=== PATIENT | male | born 1960 | race Caucasian/White ===

== ENCOUNTER 2016-09-16 19:20 | Emergency (ER) | payer OTHER ==
--- NOTE | 2016-09-16 21:19 | ED Physician Chart ---
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 who swatted at the syringe sticking the pt's left thumb; Last tetanus shot: < 5 years; 2014; UTD; pt has mild left thumb pain; pt denies paresthesias, weakness , numbness, tingliness, neck pain, radiculopathy, neck pain, C/P, dyspnea, abdominal pain, A/N/V/D/C, fever, chills, Historian:: Patient Review:: Nurse's Note Reviewed Review of Systems - Review of Systems General/Constitutional: Fever, Chills, No weight loss, No weakness, No diaphoresis, No edema, No loss of appetite Skin: No skin lesions, Rash, No bruising Head: No headache, No light-headedness Eyes: No loss of vision, No pain, No diplopia ENT: No earache, No nasal drainage, No sore throat, No tinnitus Neck: No neck pain, No swelling, No thyromegaly, No stiffness, No mass noted Cardio Vascular: Chest pain, Palpitations, No PND, No orthopnea, No edema Pulmonary: SOB, Cough, No sputum, No wheezing GI: Nausea, Vomiting, Diarrhea, No pain, No melena, No hematochezia, No constipation, No hematemesis G/U: No dysuria, No frequency, No hematuria Musculoskeletal: No bone or joint pain, No back pain, No muscle pain Endocrine: No polyuria, No polydipsia Psychiatric: No prior psych history, No depression, No anxiety, No suicidal ideation, No homicidal ideation, No auditory hallucination, No visual hallucination Hematopoietic: No bruising, No lymphadenopathy Allergic/Immuno: No urticaria, No angioedema Neurological: No syncope, No focal symptoms, No weakness, No paresthesia, No headache, No seizure, No dizziness, No confusion, No vertigo Past Medical History - Past Medical History Obtainable: Yes Past Medical History: HTN, Renal stone, Other (Renal Tumor; PSVT) Family History: Diabetes Melitus, HTN Social History: Non Smoker, No Alcohol, No Drug Use, Single, Employed ( Laparoscopy for Renal Tumor) Surgical History: other Psychiatricy History: None Medication: Reviewed Family Medical History - Family Member Mother History Unknown: Yes Physical Exam - Physical Examination General/Constitutional: Awake, Well-developed, well-nourished, Alert, No distress, GCS 15, Non-toxic appearing, Ambulatory Head: Atraumatic Eyes: Lids, conjuctiva normal, PERRL, EOMI Skin: Nl inspection, No rash, No skin lesions, No ecchymosis, Well hydrated, No lymphadenopathy Other Skin comments:: Left Thumb Puncture Wound and Contusion at the volar DP region; no FBs; no cellulitis; no ligament instability; no ligament laxity; good motor, tendon, and sensory functions; good NV functions ENMT: External ears, nose nl, Nasal exam nl, Lips, teeth, gums nl Neck: Nontender, Full ROM w/o pain, No JVD, No nuchal rigidity, No bruit, No mass, No stridor Respiratory: Nl effort/Exclusion, Clear to Auscultation, No Wheeze/Rhonchi/Rales Cardio Vascular: RRR, No murmur, gallop, rubs, NL S1 S2 GI: No tenderness/rebounding/guarding, No organomegaly, No hernia, Normal BS's, Nondistended, No mass/bruits, No McBurney tenderness : No CVA tenderness Extremities: No tenderness or effusion, Full ROM, normal strength in all extremities, No edema, Normal digits & nails Neuro/Psych: Alert/oriented, DTR's symmetric, Normal sensory exam, Normal motor strength, Judgement/insight normal, Mood normal, Normal gait, No focal deficits Misc: normal gait, Normal back, No paraspinal tenderness Labs/Radiology/EKG Results - Lab Results Results: Pending - Radiology Results Comments:: pt deferred X-Rays - EKG Interpretations Comments:: pt deferred EKG ED Septic Shock - . Is Septic Shock (SBP<90, OR Lactate>4 mmol\L) present?: No Reassessment (Disposition) - Reassessment Reassessment:: pt is asymptomatic upon discharge Reassessment Condition:: Improved - Diagnosis Diagnosis:: ; Left Thumb Puncture Wound; Needle Stick; Left Thumb Contusion; Hypertension - Aftercare/Follow up Instructions Aftercare/Follow-Up Instructions:: Counseled pt regarding lab results/diagnosis & need follow up, Refer to Discharge Instructions, Counseled pt & family regarding lab results/diagnosis & need follow up - Patient Disposition Discharge/Transfer:: Home Condition at Disposition:: Stable, Improved (Follow Infection Control Protocol; Discharge Care Instuctions; ACIs given for all above Dx; RTER prn if existing s/ s reoccur and/or get worse and/or any other new s/s occur; Have Blood Pressure re-checked in one day; Have Puncture Wound re-checked in one day; Refer to Orthopedist/Hand Specialist/Infectious Disease Specialist/Accounting Support Specialist LAUREN; F/U with PMD in one day or prn; RTER prn ifc concerned)
[2016-09-17 03:18] LABS: HEMATOCRIT 35.1 % (39.0-49.0); HEMOGLOBIN 12.7 gm/dL (13.2-17.3); MEAN CORPUSCULAR HEMOGLOBIN 33.4 pg (26.0-30.0); MEAN CORPUSCULAR HGB CONC 36.3 pg (28.0-36.0); MEAN PLATELET VOLUME 9.4 fl; NEUTROPHILE ABSOLUTE 1.4 Th/cmm (1.8-8.0); PLATELET COUNT 218 Th/cmm (150-400); RED BLOOD COUNT 3.81 Mil/cmm (4.30-5.70); RED CELL DISTRIBUTION WIDTH 14.4 % (11.5-20.0); WHITE BLOOD COUNT 5.2 Th/cmm (4.8-10.8)
[2016-09-17 03:21] LABS: TROP I 0.01 ng/mL (0.01-0.05)
[2016-09-17 03:26] LABS: % BASOPHILS 21.5 % (0.0-2.0)
[2016-09-17 03:30] LABS: ALKALINE PHOSPHATASE 57 U/L (34-104); ANION GAP 7.6 (7.0-16.0); BILIRUBIN,TOTAL 0.3 mg/dL (0.3-1.0); BUN - UREA NITROGEN 41 mg/dL (7-25); BUN/CREATININE RATIO 29.3; CALCIUM SERUM 9.7 mg/dL (8.6-10.3); CARBON DIOXIDE 22.9 mEq/L (21.0-31.0); CHLORIDE 107 mEq/L (98-107); CHOLESTEROL 147 mg/dL (<200); CREATININE - SERUM 1.4 mg/dL (0.7-1.3); GLUCOSE 96 mg/dL (70-105); POTASSIUM SERUM 4.5 mEq/L (3.5-5.1); SGOT 16 U/L (13-39); SGPT/ALT 14 U/L (7-52); SODIUM SERUM 133 mEq/L (136-145); TRIGLYCERIDES 106 mg/dL (<150)
[2016-09-17 03:31] LABS: INR 0.91 (0.5-1.4); PROTHROMBIN TIME (TEST) 9.5 SECONDS (9.5-11.5)
[2016-09-17 06:09] LABS: BNP < 5.0 pg/mL (5.0-100.0)
[2016-09-18 12:14] LABS: HEP B CORE IGM Negative (Negative); HEP C ANTIBODY <0.1 s/co ratio (0.0-0.9)
== END 2016-09-17 03:00 | disposition home or self-care (01) ==
LOC: ER 19:20
DX: S61.032A Puncture wound without foreign body of left thumb without damage to nail, initial encounter (principal); I10 Essential (primary) hypertension; W46.0XXA Contact with hypodermic needle, initial encounter; Y93.89 Activity, other specified; Y92.89 Other specified places as the place of occurrence of the external cause; Y99.8 Other external cause status
CPT/HCPCS: 36415-UA; 80053-TC; 80061-TC; 80074-90; 82550-TC; 83880-TC; 84484-TC; 85007-TC; 85027-TC; 85610-TC; 86703-TC; 94760; Z7502